=== PATIENT | female | born 1955 | race Caucasian/White ===

== ENCOUNTER 2017-03-30 13:55 | Emergency (ER) | payer OTHER ==
[~2017-03-30] VITALS: Ht 172.7 cm; Wt 54.0 kg
[2017-03-30] MEDS ORDERED: DILTIAZEM 5 MG/ML, 5ML ONE (14:52)
[2017-03-30] MEDS ORDERED: DILTIAZEM 5 MG/ML, 5ML IV ONE (15:00)
[2017-03-30] MEDS ORDERED: SODIUM CHLORIDE 0.9% 1,000ML IVBOLUS ONE (15:00)
[2017-03-30] MEDS ORDERED: ASPIRIN 81 MG TABLET CHEW PO ONE (15:00)
[2017-03-30 15:25] LABS: BLOOD UREA NITROGEN 19 mg/dL (7-18)
[2017-03-30 15:31] LABS: IS PT STATUS REG ER OR PRE ER? YES
[2017-03-30 16:37] VITALS: BP 131/81
== END 2017-03-30 16:39 | disposition home or self-care (01) ==
LOC: ED 14:53
DX: I48.91 Unspecified atrial fibrillation (principal)
CPT/HCPCS: 36415; 80048; 82040; 84439; 84443; 84484; 85025; 85610; 85730; 93005; 99285